=== PATIENT | male | born 1975 | race Hispanic/Latino ===

== ENCOUNTER → 2022-06-17 | Outpatient (CLI) | payer MEDICARE | END | disposition home or self-care (01) | LOC: SHCH 08:26 | PROVIDERS: ATTEND Internal Medicine Cardiovascular Disease | DX: I34.8 Other nonrheumatic mitral valve disorders (principal); I10 Essential (primary) hypertension; R94.31 Abnormal electrocardiogram [ECG] [EKG]; E11.9 Type 2 diabetes mellitus without complications; E78.5 Hyperlipidemia, unspecified | CPT/HCPCS: 93306 ==

== ENCOUNTER 2025-02-13 08:04 | Day surgery (SDC) | payer OTHER ==
[~2025-02-13] VITALS: Ht 167.6 cm; Wt 104.3 kg
[2025-02-13] VITALS (10 sets, daily range): BP systolic 113–134; BP diastolic 63–86; PULSE 74–92; RESP 15–18; TEMP 97–97.8
[2025-02-13] MEDS ORDERED: EMPA1TAB7 PO (08:43)
[2025-02-13] MEDS ORDERED: LOSA25TA41 PO (08:43)
[2025-02-13] MEDS ORDERED: PIOG45TA64 PO (08:43)
[2025-02-13] MEDS ORDERED: ROSU10TA72 PO (08:43)
[2025-02-13] MEDS ORDERED: TIRZ12.5 SQ (08:43)
[2025-02-13] MEDS: 0.9%NACL 1000ML 1,000 ML IV ONE (08:54)
[2025-02-13] MEDS ORDERED: LIDOCAINE PF 100MG/5ML (2%) SYRINGE 5ML ONE (09:43)
[2025-02-13] MEDS ORDERED: proPOFol 10 MG/ML 20ML VIAL IV ONE (09:43)
== END 2025-02-13 11:03 | disposition home or self-care (01) ==
LOC: EDH 08:04 → DAH 08:04 → EEVIPCON 11:00 → EDH 11:03
PROVIDERS: ATTEND Internal Medicine Gastroenterology
DX: K59.00 Constipation, unspecified (principal); K57.30 Diverticulosis of large intestine without perforation or abscess without bleeding; R10.84 Generalized abdominal pain; I10 Essential (primary) hypertension; E11.9 Type 2 diabetes mellitus without complications; Z93.3 Colostomy status; Z79.899 Other long term (current) drug therapy; Z98.890 Other specified postprocedural states
CPT/HCPCS: 44404; 82948 ×2; J7030; J2003; J2704; A4620; A4215 ×2; A4223; A4222; A4221; A4663; A4606; J3490